=== PATIENT | male | born 1985 | race Caucasian/White ===

== ENCOUNTER 2023-05-09 21:23 | Observation (INO) ==
[2023-05-10 00:19] LABS: ABS Basophils 0.1 10^3/uL (0.0-0.1); ABS Eosinophils 0.2 10^3/uL (0.0-0.5); ABS Lymphocytes 3.1 10^3/uL (1.0-4.8); ABS Monocytes 1.1 10^3/uL (0.0-1.1); ABS Neutrophils 6.1 10^3/uL (1.5-7.6); ABS Nucleated RBC 0.01 10^3/ul; Eosinophil % 1.7 %; Hemoglobin 13.7 g/dL (13.2-16.3); Lymphocyte % 29.1 %; Mean Corpuscular Hemoglobin 29.2 pg (27-33); Mean Corpuscular Hgb Conc 34.4 g/dL (31-36); Mean Corpuscular Volume 84.9 fL (80-97); Mean Platelet Volume 8.5 fL (7.5-11.2); Nucleated Red Blood Cells % 0.1 %/100WBC (0.0-0.8); Platelet Count 279 10^3/uL (150-450); Red Blood Count 4.71 10^6/uL (4.06-5.63); Red Cell Distribution Width 12.5 % (12-17); White Blood Count 10.6 10^3/uL (3.6-10.2)
[2023-05-10 00:59] LABS: Albumin 4.2 g/dL (3.2-5.2); Albumin/Globulin Ratio 1.5 (1-3); C Reactive Protein 33.88 mg/L (<8.01); Calcium 9.3 mg/dL (8.6-10.3); Creatinine, Serum 0.72 mg/dL (0.67-1.17); Globulin 2.8 g/dL (2-4); Potassium 4.5 mmol/L (3.5-5.0); Total Bilirubin 0.4 mg/dL (0.2-1.0); eGFR CKD-EPI 119.2 (>60)
[2023-05-10] MEDS ORDERED: Dextrose 50% Syringe 50 ml 25 GM/50 ML SYRINGE IV PUSH PRN ×2 (01:24→01:40)
[2023-05-10] MEDS: Cefepime 1 GM in Dextrose 1 GM/50 ML BAG IV SCH ×2 (01:39→15:51)
[2023-05-10] MEDS: Insulin GLARGINE 100 un/ml 10 ml VIAL SUBCUT SCH (01:45)
[2023-05-10 02:07] LABS: Urine Appearance Clear; Urine Bilirubin Negative (Negative); Urine Blood Negative (Negative); Urine Color Light-Yellow; Urine Glucose 4+ (>=1000 mg/dL) (Negative); Urine Ketones Negative (Negative); Urine Nitrite Negative (Negative); Urine Protein Negative (Negative); Urine Urobilinogen Negative (Negative); Urine pH 5.5 (5.0-8.0)
[2023-05-10] MEDS: metroNIDAZOLE IV 500 MG/100ML 500 MG/100 ML BAG IVPB SCH ×2 (02:23→10:31)
[2023-05-10] MEDS: Lactated Ringers 1000 ml BAG 1,000 ML IV SCH (03:31)
[2023-05-10 08:06] LABS: Calcium 8.7 mg/dL (8.6-10.3); Creatinine, Serum 0.65 mg/dL (0.67-1.17); Potassium 4.3 mmol/L (3.5-5.0); eGFR CKD-EPI 122.9 (>60)
[2023-05-10 08:40] LABS: ABS Eosinophils 0.1 10^3/uL (0.0-0.5); ABS Lymphocytes 2.6 10^3/uL (1.0-4.8); ABS Monocytes 1.1 10^3/uL (0.0-1.1); Eosinophil % 1.2 %; Hematocrit 36.4 % (38-53); Hemoglobin 12.6 g/dL (13.2-16.3); Lymphocyte % 26.8 %; Mean Corpuscular Hemoglobin 29.1 pg (27-33); Mean Corpuscular Hgb Conc 34.5 g/dL (31-36); Mean Corpuscular Volume 84.3 fL (80-97); Mean Platelet Volume 8.7 fL (7.5-11.2); Platelet Count 248 10^3/uL (150-450); Red Blood Count 4.32 10^6/uL (4.06-5.63); Red Cell Distribution Width 12.3 % (12-17); White Blood Count 9.9 10^3/uL (3.6-10.2)
[2023-05-10] MEDS ORDERED: Vancomycin 1,000 MG in NS 0.9% 250 ml 250 ML IVPB ONE (09:24)
[2023-05-10] MEDS ORDERED: Vancomycin per Pharmacy 1 EA NOTE FOLLOW UP SCH (10:00)
[2023-05-10] MEDS: Vancomycin 1,750 MG in NS 0.9% 500 ml BAG 500 ML IVPB ONE (12:49)
[2023-05-10 17:13] LABS: C Reactive Protein 32.48 mg/L (<8.01)
[2023-05-11] MEDS: Vancomycin 1,250 MG in NS 0.9% 250 ml 250 ML IVPB SCH (00:11)
[2023-05-11 05:33] LABS: ABS Eosinophils 0.2 10^3/uL (0.0-0.5); ABS Lymphocytes 2.6 10^3/uL (1.0-4.8); ABS Nucleated RBC 0.01 10^3/ul; Eosinophil % 1.8 %; Hematocrit 35.7 % (38-53); Hemoglobin 12.1 g/dL (13.2-16.3); Lymphocyte % 29.1 %; Mean Corpuscular Hemoglobin 28.9 pg (27-33); Mean Corpuscular Hgb Conc 33.9 g/dL (31-36); Mean Corpuscular Volume 85.1 fL (80-97); Mean Platelet Volume 8.6 fL (7.5-11.2); Nucleated Red Blood Cells % 0.1 %/100WBC (0.0-0.8); Platelet Count 240 10^3/uL (150-450); Red Blood Count 4.19 10^6/uL (4.06-5.63); Red Cell Distribution Width 12.6 % (12-17); White Blood Count 8.8 10^3/uL (3.6-10.2)
[2023-05-11 06:03] LABS: C Reactive Protein 36.28 mg/L (<8.01); Calcium 8.7 mg/dL (8.6-10.3); Creatinine, Serum 0.73 mg/dL (0.67-1.17); Potassium 4.6 mmol/L (3.5-5.0); eGFR CKD-EPI 118.7 (>60)
[2023-05-11] MEDS ORDERED: Iodixanol (CONTRAST) 320 MG/ML 100 ML SDV IV SCH (10:04)
[2023-05-11] MEDS: Vancomycin Trough Check NOTE FOLLOW UP ONE (14:46)
[2023-05-11] MEDS: Vancomycin 1000 MG in NS 0.9% 250 ML IVPB SCH (16:23)
[2023-05-12 07:21] LABS: ABS Eosinophils 0.2 10^3/uL (0.0-0.5); ABS Lymphocytes 2.2 10^3/uL (1.0-4.8); ABS Monocytes 0.8 10^3/uL (0.0-1.1); ABS Neutrophils 4.1 10^3/uL (1.5-7.6); ABS Nucleated RBC 0.01 10^3/ul; Hematocrit 35.9 % (38-53); Hemoglobin 12.1 g/dL (13.2-16.3); Lymphocyte % 29.8 %; Mean Corpuscular Hemoglobin 28.7 pg (27-33); Mean Corpuscular Hgb Conc 33.8 g/dL (31-36); Mean Corpuscular Volume 84.8 fL (80-97); Mean Platelet Volume 8.5 fL (7.5-11.2); Nucleated Red Blood Cells % 0.1 %/100WBC (0.0-0.8); Platelet Count 258 10^3/uL (150-450); Red Blood Count 4.23 10^6/uL (4.06-5.63); Red Cell Distribution Width 12.4 % (12-17); White Blood Count 7.4 10^3/uL (3.6-10.2)
[2023-05-12 10:14] VITALS: BP 161/97
[2023-05-14] MEDS ORDERED: Vancomycin Trough Check NOTE FOLLOW UP ONE (08:30)
== END 2023-05-12 12:50 | disposition home or self-care (01) ==
LOC: ED 21:23 → INTOOBSV 05-10 01:25 → SUATTDRO 05-10 01:25 → EDHOLD 05-10 01:25 → MEDTELE 05-10 07:40
PROVIDERS: ADMIT Internal Medicine; ATTEND Internal Medicine

== ENCOUNTER 2023-08-29 18:24 | Inpatient (IN) ==
[2023-08-29 20:10] LABS: ABS Eosinophils 0.1 10^3/uL (0.0-0.5); ABS Monocytes 0.6 10^3/uL (0.0-1.1); ABS Neutrophils 2.7 10^3/uL (1.5-7.6); Eosinophil % 2.2 %; Hemoglobin 13.9 g/dL (13.2-16.3); Lymphocyte % 45.7 %; Mean Corpuscular Hemoglobin 29.1 pg (27-33); Mean Corpuscular Volume 85.5 fL (80-97); Mean Platelet Volume 8.5 fL (7.5-11.2); Nucleated Red Blood Cells % 0.1 %/100WBC (0.0-0.8); Platelet Count 247 10^3/uL (150-450); Red Blood Count 4.79 10^6/uL (4.06-5.63); Red Cell Distribution Width 13.3 % (12-17); White Blood Count 6.5 10^3/uL (3.6-10.2)
[2023-08-29 20:40] LABS: ALT 26 U/L (7-52); AST 16 U/L (13-39); Acetaminophen < 15 mcg/mL; Albumin 4.1 g/dL (3.2-5.2); Albumin/Globulin Ratio 1.4 (1-3); Alcohol, S < 13 mg/dL (<13); Alkaline Phosphatase 50 U/L (35-149); Anion Gap 8 mmol/L (2-16); Blood Urea Nitrogen 20 mg/dL (6-24); CO2 Carbon Dioxide 29 mmol/L (22-32); Calcium 9.3 mg/dL (8.6-10.3); Chloride 101 mmol/L (101-111); Globulin 2.9 g/dL (2-4); Glucose 160 mg/dL (70-100); Salicylate < 2.50 mg/dL (<30); Sodium 138 mmol/L (135-145); Total Bilirubin 0.3 mg/dL (0.2-1.0); eGFR CKD-EPI 115.5 (>60)
[2023-08-29 20:54] LABS: TSH Ultra Thyroid Stim Horm 1.79 mcIU/mL (0.34-5.60)
[2023-08-29 21:07] LABS: Urine Appearance Clear; Urine Bilirubin Negative (Negative); Urine Blood Negative (Negative); Urine Color Colorless; Urine Glucose Negative (Negative); Urine Ketones Negative (Negative); Urine Nitrite Negative (Negative); Urine Protein Negative (Negative); Urine Specific Gravity 1.013 (1.002-1.030); Urine Urobilinogen Negative (Negative)
[2023-08-29 21:22] LABS: Urine Benzodiazepine Screen None Detected (None Detect); Urine Cannabinoids Screen None Detected (None Detect); Urine Opiates Screen None Detected (None Detect)
[2023-08-30] MEDS: Vitamin THERAPEUTIC TAB PO SCH (09:02)
[2023-08-30] MEDS: TADALAFIL 5 MG PO SCH (09:03)
[2023-08-30] MEDS: Insulin GLARGINE 100 un/ml 10 ml VIAL SUBCUT SCH (09:04)
[2023-08-31] MEDS: Al Hydrox/Mg Hydrox/Simet LIQ 30 ML UDC PO PRN (07:32)
[2023-08-31 08:30] LABS: HDL Cholesterol 46.5 mg/dL
[2023-08-31] MEDS: PANCREATIN PO SCH (11:39)
[2023-09-03 09:47] VITALS: BP 146/94
== END 2023-09-03 13:48 | disposition home or self-care (01) | DRG 751 ==
LOC: ED 18:24 → BSU 08-30 01:09
PROVIDERS: ADMIT Psychiatry & Neurology Psychiatry; ATTEND Psychiatry & Neurology Psychiatry